=== PATIENT | male | born 1940 | race Caucasian/White ===

== ENCOUNTER 2017-08-12 13:34 | Emergency (ER) | payer OTHER ==
[2017-08-12] MEDS ORDERED: LET GEL TOPICAL 1 EA SYR TP ONE (13:43)
[2017-08-12] MEDS ORDERED: DILTIAZEM 30 MG TAB PO ONE (14:40)
--- NOTE | 2017-08-12 14:50 | EDPHY ---
H & P Stated Complaint: Fell POTLINE MONITOR - hit head - no LOC - Personal History Current Tetanus Diphtheria and Acellular Pertussis (TDAP): Yes - Medical/Surgical History Other PMH: Parkinsons/ Dimentia/HTN/Hyperlipids - Social History Smoking Status: Never smoked Time Seen by Provider: 08/12/17 13:36 HPI/ROS: CHIEF COMPLAINT: Fall HISTORY OF PRESENT ILLNESS: This is a 77-year-old male with history of Parkinson's disease, coronary disease, hypertension, atrial fibrillation, and previous stroke who presents after mechanical fall. The history was obtained from the patient and his caregiver, who was present. She notes that he lost his balance, started to spin, could not regain his balance, and fell to the ground. He struck the right side of his forehead/face and his right shoulder. He takes 1 baby aspirin daily, no other anticoagulants. He denies headache or confusion. He is not experiencing shoulder pain. REVIEW OF SYSTEMS: A ten point review of systems was performed and is negative with the exception of the items mentioned in the HPI. Past medical history: 1. Coronary artery disease status post stenting 2. Hypertension 3. Hyperlipidemia 4. Atrial fibrillation 5. CVA 6. Parkinson's disease 7. 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 He lives in a private home with a caregiver around the clock. General Appearance: Alert. Vital signs reviewed. 190/112. Head: there is a 2 cm stellate laceration over the right eyebrow laterally. Some swelling and bruising above that. There is an abrasion over the right zygoma. No zygomatic tenderness or crepitus. No skull deformity palpable. Eyes: Pupils equal and round, no conjunctival injection, no discharge. Anicteric. ENT, Mouth: Mucous membranes are moist, no oropharyngeal erythema or edema. Dentition intact. Neck: Nontender to palpation over the cervical spine in the midline. No pain with active range of motion. Respiratory: Lungs are clear to auscultation; no wheezes, rales, or rhonchi. Cardiovascular: Regular rate and rhythm; no murmur, rub, or gallop. Gastrointestinal: Abdomen is soft and nontender, no masses or organomegaly, bowel sounds normal. Skin: Warm and dry, no rashes on exposed skin, normal color. Scattered ecchymoses over both upper extremities, less so in the lower extremities. Skin tears right forearm posterolaterally. Back: Nontender to palpation over the thoracolumbar spine. No CVAT. Extremities: Bilateral lower extremity edema. Full active range of motion both arms and legs. Neurological: Alert and oriented. BRANDY. EOMI. Facial expression symmetric. Tongue midline. Moving all four extremities easily and equally. Psychiatric: Normal affect. (Wanda Fink) Constitutional: Initial Vital Signs Temperature (C) 36.6 C 08/12/17 13:48 Heart Rate 79 08/12/17 13:48 Respiratory Rate 18 08/12/17 13:48 Blood Pressure 170/85 H 08/12/17 13:48 O2 Sat (%) 96 08/12/17 13:48 O2 Delivery Mode Room Air Allergies/Adverse Reactions: nickel Allergy (Verified 08/12/17 14:11) Home Medications: Medication Instructions Recorded Ascorbic Acid [Vitamin C 500 mg 500 mg PO DAILY10 07/04/12 (OTC)] Aspirin EC [Aspirin EC 81 mg (OTC)] 81 mg PO DAILY 07/04/12 Calcium/Magnesium/Zinc 1 each PO DAILY10 07/04/12 [Ubvpwle-Wddcrmpnl-Iaqs Tab] Cholecalciferol Vit D3 [Vitamin D3 2,000 units PO DAILY10 07/04/12 2000 units (OTC)] Glucosam/Chondr/Collagn/Hyalur 1 each PO TID 07/04/12 [Glucosamine & Chondroitin Cap] Lycopene 15 mg PO DAILY10 07/04/12 Md Reconciled 07/04/12 07/04/12 Multivitamins [Tab-A-Josh] 1 each PO DAILY10 07/04/12 Niacin [Niacin 500 mg (OTC)] 500 mg PO HS 07/04/12 [place]-3 Fatty Acids [Fish Oil 1000 1,000 mg PO DAILY10 07/04/12 mg (OTC)] Adviser Sales Completed 07/04/12 07/04/12 Potassium Gluconate [Potassium] 1 tab PO DAILY10 07/04/12 Selenium [Selenium 200mcg (OTC)] 200 mcg PO DAILY10 07/04/12 Amantadine 08/12/17 Digoxin 08/12/17 Diltiazem [Cardizem Ir Q6hr] 30 mg PO BID #60 tab 05/25/18 Medical Decision Making Procedures: Procedure: Laceration repair. I was requested by Dr. Fink to perform wound closure I explained the indications, risks and benefits for both laceration repair and anesthetic administration. Verbal consent was obtained from the patient. The laceration on the right lateral eyebrow was anesthetized using 0.5% bupivicaine with epinephrine. After anesthetic administered the patient was observed for a period of time and had no apparent adverse effects. The wound was cleaned, prepped, draped in normal sterile fashion and explored to its base. No foreign body seen, no foreign bodies palpated. There were no deep structures involved. The wound was repaired with 6 simple interrupted 6 0 Prolene. The wound repair was complex. The procedure was performed by myself. Patient has been informed that scarring will occur, although efforts have been made to minimize this. ( Aurora Mcgrath) ED Course/Re-evaluation: CT scan of the head shows signs of aging, no acute injury. I reviewed the images and discussed them with Dr. Danielson. Patient was re-evaluated at 3:00 p.m.. He remains neurologically intact with no new complaints. He continues to have full active range of motion of his right arm, including shoulder. He has no complaints. Laceration repaired by Eugene Mcgrath. Dressings applied to skin tear on right forearm. This is an old skin tear that apparently reopened with this fall. I discussed the patient's hypertension with the on-call reproductive healthcare assistant. We were able to review the office notes from Dr. Ortiz. It seems that this patient has not been on antihypertensives recently. Given his multiple risk factors for stroke it was recommended that he be started on an antihypertensive. Diltiazem twice daily was the recommendation in the 1st dose was given in the emergency department. I have explained this to both the patient and his caregiver. They understand the importance of monitoring his blood pressure at home and the importance of moving about carefully particularly when rising from a chair from the bed. They know that a new blood pressure medication could cause his blood pressure to be too low and that this could make him feel faint. He is on multiple medications and I am recommending follow up with both his reproductive healthcare assistant and his primary care physician to review his medications and to be certain that his blood pressure is being adequately and appropriately controlled. (Wanda Fink) Differential Diagnosis: I considered a differential diagnosis that includes but is not limited to skull fracture, intracranial hemorrhage, cervical injury, long bone or other fracture , laceration, contusion, and abrasion. (Wanda Fink) - Data Points Medications Given: Discontinued Medications Diltiazem HCl (Cardizem Immediate Release) 30 mg PO EDNOW ONE Stop: 08/12/17 14:41 Last Admin: 08/12/17 15:39 Dose: 30 mg Departure - Departure Disposition: Home, Routine, Self-Care Condition: Good Instructions: Contusion in Adults (ED), Hypertension (ED), Facial Laceration ( ED) Additional Instructions: Take the diltiazem 30 mg twice daily. This is a medication for your blood pressure. Your blood pressure was high in the emergency department. You should check your blood pressure twice daily and write down the readings for your primary care doctor and for Dr. Ortiz. Be very careful when you stand up or get out of bed, do so slowly. You need to be followed up next week, just to be sure everything is going well. Call on Tuesday to schedule an appointment with either Dr. Ortiz or your primary care physician. You have stitches in your forehead that need to come out in 7 days. I recommend that you use your walker when out and about. Referrals: Wesley Garcia DO [Primary Care Provider] - As per Instructions Jae Ortiz MD [Medical Doctor] - As per Instructions Prescriptions: Diltiazem [Cardizem Ir Q6hr] 30 mg PO BID #60 tab
[2017-08-12 16:34] VITALS: BP 166/84
== END 2017-08-12 16:33 | disposition home or self-care (01) ==
LOC: EDUNIT#
PROC: 0HQ1XZZ Repair Face Skin, External Approach (ICD-10-PCS; principal; 2017-08-12)
DX: S01.81XA Laceration without foreign body of other part of head, initial encounter (principal); I10 Essential (primary) hypertension; I25.10 Atherosclerotic heart disease of native coronary artery without angina pectoris; Z79.82 Long term (current) use of aspirin; W18.39XA Other fall on same level, initial encounter

== ENCOUNTER 2017-12-07 21:02 | Emergency (ER) | payer OTHER ==
[2017-12-07] MEDS ORDERED: DILTIAZEM 30 MG TAB PO ONE (21:27)
--- NOTE | 2017-12-07 21:30 | EDPHY ---
H & P Stated Complaint: high BP Time Seen by Provider: 12/07/17 21:28 HPI/ROS: HPI: This is a 77-year-old male who presents with Chief Complaint: Running out of blood pressure medication Location: Heart Quality: Out of medication Duration: This evening Signs and Symptoms: no shortness of breath at rest, no shortness of breath on exertion, no cough, no chest pain, no palpitations, no lower extremity edema, no wheezing, no orthopnea, no paroxysmal nocturnal dyspnea, no fever, no injury/ trauma, no hemoptysis, no carpal pedal spasms Timing: Acute Severity: Mild Context: Patient has a history of Parkinson's disease, atrial fibrillation only on aspirin due to fall risk presents accompanied by his son who noted only having 1 pill of Cardizem left this evening. He attempted to call the primary care provider and a prescription has not been refilled. Patient is to be taking Cardizem 30 mg twice daily. He denies any history of chest pain, shortness of breath, nausea, diaphoresis, headache. Modifying Factors: None Comment: ROS: A comprehensive 10 system review of systems is otherwise negative aside from elements mentioned in the history of present illness. MEDICAL/SURGICAL/SOCIAL HISTORY: Medical history: Parkinsons/ Dimentia/HTN/Hyperlipids Surgical history: Heart valve replacement Social history: Retired. Nonsmoker. CONSTITUTIONAL: Elderly white male, son at bedside, awake and alert, no obvious distress HEENT: Atraumatic and normocephalic, PERRL, EOMI. Nares patent; no rhinorrhea; no nasal mucosal edema. Tympanic membranes clear. Oropharynx clear, no exudate and moist pink mucosa. Airway patent. No lymphadenopathy. No meningismus. Cardiovascular: Normal S1/S2, regular rate, regular rhythm, without murmur rub or gallop. PULMONARY/CHEST: Symmetrical and nontender. Clear to auscultation bilaterally. Good air movement. No accessory muscle usage. ABDOMEN: Soft, nondistended, nontender, no rebound, no guarding, no peritoneal signs, no masses or organomegaly. No CVAT. EXTREMITIES: 2/2 pulses, strength 5/5, no deformities, no clubbing, no cyanosis or edema. NEUROLOGICAL: no focal neuro deficits. GCS 15. Rolling tremor. SKIN: Warm and dry, pallor, leathery skin, no erythema. no rash. Good capillary refill. Source: Patient, Family Exam Limitations: Clinical condition - Personal History Current Tetanus/Diphtheria Vaccine: Yes Current Tetanus Diphtheria and Acellular Pertussis (TDAP): Yes - Medical/Surgical History Hx Asthma: No Hx Chronic Respiratory Disease: No Hx Diabetes: No Hx Cardiac Disease: No Hx Renal Disease: No Hx Cirrhosis: No Hx Alcoholism: No Hx HIV/AIDS: No Hx Splenectomy or Spleen Trauma: No Other PMH: Parkinsons/ Dimentia/HTN/Hyperlipids, heart valve replacement - Social History Smoking Status: Never smoked Constitutional: Initial Vital Signs Temperature (C) 36.5 C 12/07/17 21:08 Heart Rate 80 12/07/17 21:08 Respiratory Rate 16 12/07/17 21:08 Blood Pressure 180/99 H 12/07/17 21:08 O2 Sat (%) 98 12/07/17 21:08 O2 Delivery Mode Room Air Allergies/Adverse Reactions: nickel Allergy (Verified 12/07/17 21:06) Home Medications: Medication Instructions Recorded Aspirin EC [Aspirin EC 81 mg (OTC)] 81 mg PO DAILY 07/04/12 Md Reconciled 07/04/12 07/04/12 Learning Coach Completed 07/04/12 07/04/12 Amantadine 08/12/17 Digoxin 08/12/17 Diltiazem [Cardizem Ir Q6hr] 30 mg PO BID #60 tab 08/12/17 Carbidopa-Levo 10-100 mg Odt 12/07/17 Diltiazem [Cardizem Immediate 30 mg PO BID #60 tab 12/07/17 Release] Medical Decision Making - Diagnostics EKG Interpretation: 12 lead EKG: Indication: Hypertension Rhythm: Atrial fibrillation rate 84 beats per minute [place]: Normal Intervals: Normal QRS: Normal ST segments: Nonspecific changes INTERPRETATION: No acute ischemic changes The 12 lead EKG was interpreted by myself and with attending. ED Course/Re-evaluation: EKG and p.o. Med given EKG my read shows no acute ischemic changes. + rate controlled atrial fibrillation Patient is not having chest pain/shortness of breath/dizziness He was given Cardizem 30 mg immediate release in the emergency room, his home dose I did refill his medication for 30 days and advised him to follow up outpatient with his primary care provider. This patient was seen under the supervision of my secondary supervising physician. I evaluated care for this patient independently. Discussed this patient with Dr. Morales Differential Diagnosis: Differential diagnosis includes hypertension - Data Points Medications Given: Discontinued Medications Diltiazem HCl (Cardizem Immediate Release) 30 mg PO EDNOW ONE Stop: 12/07/17 21:28 Last Admin: 12/07/17 21:46 Dose: 30 mg Departure - Departure Disposition: Home, Routine, Self-Care Clinical Impression: Essential hypertension, Chronic atrial fibrillation Condition: Good Instructions: Hypertension (ED) Additional Instructions: Please take Cardizem 30 mg twice daily. Follow-up with primary care provider in the next 1-2 weeks to refill medication. Return to the ER immediately if you experience new, continued or worsened chest pain, chest pain that radiates, chest pain accompanied by exertion or associated with shortness of breath, sweating, nausea, dizziness, back pain, or any other symptoms that concern you. Referrals: Wesley Garcia DO [Primary Care Provider] - 5-7 days, call for appt. Prescriptions: Diltiazem [Cardizem Immediate Release] 30 mg PO BID #60 tab
[2017-12-07 22:07] VITALS: BP 177/106
--- NOTE | 2017-12-08 19:55 | CPEKG ---
Test Reason : OPEN Blood Pressure : / mmHG Vent. Rate : 084 BPM Atrial Rate : 127 BPM P-R Int : 064 ms QRS Dur : 098 ms QT Int : 343 ms P-R-T Axes : 000 -24 -80 degrees QTc Int : 406 ms Atrial fibrillation Inferior infarct, old Lateral leads are also involved Confirmed by Coleman Hwang ([id number]) on 12/08/2017 7:55:38 PM Referred By: Confirmed By:Coleman Hwang
== END 2017-12-07 22:07 | disposition home or self-care (01) ==
DX: I10 Essential (primary) hypertension (principal); G20 Parkinson's disease; I48.2 Chronic atrial fibrillation

== ENCOUNTER 2018-02-23 13:07 | Inpatient (IN) | payer OTHER ==
[2018-02-23] MEDS ORDERED: NS 1,000 ML IV ONE (13:58)
[2018-02-23] MEDS ORDERED: ONDANSETRON 4 MG/2 ML VIAL IVP ONE (13:58)
--- NOTE | 2018-02-23 14:00 | EDPHY ---
H & P Stated Complaint: Diarrhea and non-traumatic syncope x 3 days. Time Seen by Provider: 02/23/18 13:45 HPI/ROS: CHIEF COMPLAINT: Diarrhea, syncope HISTORY OF PRESENT ILLNESS: Patient is an 78-year-old man with history of dementia, Parkinson's, coronary artery disease and atrial fibrillation but not anticoagulated. His family brings him here complaining of diarrhea for the last 3 days and now syncopal episodes today when standing. He is hypotensive here triage. No fever. Family states his diarrhea is watery and occasionally has mucousy blood in it. He has not traveled outside of the country. No abdominal pain. No vomiting. No cramping. No sick contacts. He feels thirsty and dehydrated but does not feel like eating or drinking much. Patient and family also reported history of heart valve replacement although he does not have a scar on his chest does not remember which valve and I cannot find any record of it in the medical records. Severity: Moderate Modifying factors: None REVIEW OF SYSTEMS: Constitutional: denies: chills, fever, recent illness, recent injury EENTM: denies: blurred vision, double vision, nose congestion Respiratory: denies: cough, shortness of breath Cardiac: denies: chest pain, irregular heart rate, lightheadedness, palpitations Gastrointestinal/Abdominal: denies: abdominal pain, diarrhea, nausea, vomiting, blood streaked stools Genitourinary: See HPI Musculoskeletal: denies: joint pain, muscle pain Skin: denies: lesions, rash, jaundice, bruising Neurological: denies: headache, numbness, paresthesia, tingling, dizziness, weakness Hematologic/Lymphatic: denies: blood clots, easy bleeding, easy bruising Immunologic/allergic: denies: HIV/AIDS, transplant 10 systems reviewed and negative except as noted EXAM: GENERAL: Thin, sunken eyes, moderate distress HEAD: Atraumatic, normocephalic. EYES: Pupils equal round and reactive to light, extraocular movements intact, sclera anicteric, conjunctiva are normal. ENT: TMs normal, nares patent, oropharynx clear without exudates. Very dry mucous membranes. NECK: Normal range of motion, supple without lymphadenopathy or JVD. LUNGS: Breath sounds clear to auscultation bilaterally and equal. No wheezes rales or rhonchi. HEART: Regular rate and rhythm without murmurs, rubs or gallops. ABDOMEN: Soft, nontender, normoactive bowel sounds. No guarding, no rebound. No masses appreciated. BACK: No CVA tenderness, no spinal tenderness, step-offs or deformities EXTREMITIES: Normal range of motion, no pitting or edema. No clubbing or cyanosis. NEUROLOGICAL: Cranial nerves II through XII grossly intact. Normal speech, normal gait. 5/5 strength, normal movement in all extremities, normal sensation , normal reflexes PSYCH: Normal mood, normal affect. SKIN: Dry, Warm, dry, normal turgor, no visible rashes or lesions. Source: Patient Exam Limitations: No limitations - Personal History Current Tetanus/Diphtheria Vaccine: Yes - Medical/Surgical History Hx Asthma: No Hx Chronic Respiratory Disease: No Hx Diabetes: No Hx Cardiac Disease: No Hx Renal Disease: No Hx Cirrhosis: No Hx Alcoholism: No Hx HIV/AIDS: No Hx Splenectomy or Spleen Trauma: No Other PMH: Parkinsons/ Dimentia/HTN/Hyperlipids, atrial fibrillation,?heart valve replacement - Family History Significant Family History: No pertinent family hx - Social History Smoking Status: Never smoked Alcohol Use: Sober Drug Use: None Constitutional: Initial Vital Signs Heart Rate 88 02/23/18 13:10 Respiratory Rate 16 02/23/18 13:10 Blood Pressure 87/60 L 02/23/18 13:10 O2 Sat (%) 94 02/23/18 13:10 O2 Delivery Mode Room Air Allergies/Adverse Reactions: nickel Allergy (Verified 02/23/18 13:09) Home Medications: Medication Instructions Recorded Amantadine HCl [Amantadine] 100 mg PO BID 02/23/18 Aspirin EC [Aspirin EC 81 mg (*)] 81 mg PO HS 02/23/18 Carbidopa/Levodopa 25/100Mg 1 tab PO AD 02/23/18 [Sinemet 25/100 MG (*)] Digoxin [Digitek] 125 mcg PO DAILY@14 02/23/18 Diltiazem HCl 15 mg PO BID 02/23/18 Multivitamins [Multivitamin (*)] 1 each PO DAILY 02/23/18 Medical Decision Making - Diagnostics EKG Interpretation: An EKG obtained and was read and documented in trace view. Please see trace view for full reading and report. Atrial fibrillation, no acute ischemic changes ED Course/Re-evaluation: The patient is feeling slightly better. He has had 1 L of fluids. Blood pressure is improving. CT pending. Stool sample pending Discussed the case with Dr. Barragan who will admit to the medical service. Differential Diagnosis: Partial list of the Differential diagnosis considered include but were not limited to; dehydration, diarrhea, C difficile, gastroenteritis and although unlikely based on the history and physical exam, I also considered ischemia, obstruction, volvulus. - Data Points Laboratory Results: Laboratory Results 02/23/18 13:55 02/23/18 13:55 Medications Given: Amantadine HCl (Symmetrel) 100 mg PO BID ALIS Stop: 08/22/18 20:59 Last Admin: 02/24/18 08:10 Dose: 100 mg Aspirin Buffered (Aspirin Ec) 81 mg PO HS ALIS Stop: 08/22/18 20:59 Last Admin: 02/23/18 21:23 Dose: 81 mg Digoxin (Lanoxin) 125 mcg PO DAILY@14 ALIS Stop: 08/23/18 13:59 Last Admin: 02/24/18 15:41 Dose: 125 mcg Diltiazem HCl (Cardizem Immediate Release) 15 mg PO BID ALIS Stop: 08/22/18 20:59 Last Admin: 02/24/18 08:07 Dose: 15 mg Sodium Chloride (Ns) 1,000 mls @ 100 mls/hr IV CONT ALIS Stop: 08/22/18 17:29 Last Admin: 02/24/18 04:33 Dose: 1,000 mls Multivitamins (Tab-A-Josh) 1 each PO DAILY ALIS Stop: 08/23/18 08:59 Last Admin: 02/24/18 08:10 Dose: 1 each Discontinued Medications Sodium Chloride (Ns) 1,000 mls @ 0 mls/hr IV EDNOW ONE; Wide Open PRN Reason: Protocol Stop: 02/23/18 13:59 Last Admin: 02/23/18 14:20 Dose: 1,000 mls Ondansetron HCl (Zofran) 4 mg IVP EDNOW ONE Stop: 02/23/18 13:59 Last Admin: 02/23/18 14:20 Dose: 4 mg Departure - Departure Disposition: [facility] In[facility] Acute Clinical Impression: Pre-syncope, Dehydration Diarrhea Qualifiers: Diarrhea type: unspecified type Qualified Code(s): R19.7 - Diarrhea, unspecified Condition: Fair
[2018-02-23 14:31] LABS: PLATELET COUNT 230 10^3/uL (150-400)
--- NOTE | 2018-02-23 14:32 | CPEKG ---
Test Reason : OPEN Blood Pressure : / mmHG Vent. Rate : 071 BPM Atrial Rate : 106 BPM P-R Int : 058 ms QRS Dur : 102 ms QT Int : 364 ms P-R-T Axes : 000 -28 -11 degrees QTc Int : 396 ms Atrial fibrillation Inferior infarct, old Confirmed by Fabiano Hill ([id number]) on 02/23/2018 2:32:26 PM Referred By: Confirmed By:Fabiano Hill
[2018-02-23] MEDS ORDERED: IOPAMIDOL (ISOVUE-300) 100 ML BTL ONE (15:02)
--- NOTE | 2018-02-23 16:41 | PDGENHP ---
History and Physical - Chief Complaint syncope - History of Present Illness 78 yo M with PMH of Parkinson's disease with associated dementia presenting from home following diarrhea all day yesterday followed by 2 syncopal episodes today. Patient is accompanied by his son, daughter in law and caregiver who provide much of the history as patient has evident memory issues. This am patient apparently fainted once for several seconds but then had a longer syncopal event, lasting as long as 20 minutes per estimate by patient's son. Patient states yesterday he took an immodium and after that the diarrhea resolved and he has not had any today. He denies any injuries related to the syncopal events. Family notes that he has had issues with syncope in the past, this would happen once or twice every few months, but recently has been happening more frequently and seeming more severe. They note that his bp has been erratic and that his doctor has been trying to adjust the bp medications in order to avoid these syncopal events. They were told that as long as his systolic remains below 200 not to worry about the bp essentially, they note it is often close to the 200 range. He has not had chest pain, seizure like activities or recent illness prior to the diarrhea yesterday. History Information - Allergies/Home Medication List Allergies/Adverse Reactions: nickel Allergy (Verified 02/23/18 13:09) Home Medications: Amantadine HCl [Amantadine] 100 mg PO BID 02/23/18 [Last Taken 02/23/18] Aspirin EC [Aspirin EC 81 mg (*)] 81 mg PO HS 02/23/18 [Last Taken 02/22/18] Carbidopa/Levodopa 25/100Mg [Sinemet 25/100 MG (*)] 1 tab PO AD 02/23/18 [Last Taken 02/23/18] Digoxin [Digitek] 125 mcg PO DAILY@14 02/23/18 [Last Taken 02/22/18] Diltiazem HCl 15 mg PO BID 02/23/18 [Last Taken 02/23/18] Multivitamins [Multivitamin (*)] 1 each PO DAILY 02/23/18 [Last Taken 02/23/18] I have personally reviewed and updated: family history, medical history, social history, surgical history - Past Medical History atrial fibrillation (persistent), coronary artery disease, dementia Additional medical history: Parkinson's disease. recurrent falls. epistaxix. microvascular infarcts - Surgical History Reports: coronary stent - Family History Positive for: non-pertinent - Social History Smoking Status: Never smoked Alcohol Use: Sober Drug Use: None Additional social history: lives with son/daughter in law and caregiver Review of Systems Review of Systems: ROS: 10pt was reviewed & negative except for what was stated in HPI & below Physical Exam Physical Exam: Temp Pulse Resp BP Pulse Ox 89 18 130/95 H 94 02/23/18 16:19 02/23/18 16:19 02/23/18 16:19 02/23/18 16:19 Constitutional: no apparent distress, chronically ill appearing Eyes: PERRL, anicteric sclera Ears, Nose, Mouth, Throat: hearing normal, poor dentition, dry mucous membranes Cardiovascular: no murmur, rub, or gallop, irregularly irregular, No edema Respiratory: no respiratory distress, no rales or rhonchi, clear to auscultation Gastrointestinal: normoactive bowel sounds, soft, non-tender abdomen Genitourinary: no bladder tenderness Skin: warm, normal color, other (scattered skin lesions c/w actinic keratosis) Musculoskeletal: no muscle tenderness, No muscular tenderness Neurologic: AAOx3, CN II-XII Intact Psychiatric: flat affect, poor memory Lab Data & Imaging Review 02/23/18 13:55 02/23/18 13:55 WBC 12.44 10^3/uL (3.80-9.50) H 02/23/18 13:55 RBC 5.24 10^6/uL (4.40-6.38) 02/23/18 13:55 Hgb 15.8 g/dL (13.7-17.5) 02/23/18 13:55 Hct 49.4 % (40.0-51.0) 02/23/18 13:55 MCV 94.3 fL (81.5-99.8) 02/23/18 13:55 MCH 30.2 pg (27.9-34.1) 02/23/18 13:55 MCHC 32.0 g/dL (32.4-36.7) L 02/23/18 13:55 RDW 13.9 % (11.5-15.2) 02/23/18 13:55 Plt Count 230 10^3/uL (150-400) 02/23/18 13:55 MPV 11.0 fL (8.7-11.7) 02/23/18 13:55 Neut % (Auto) 84.6 % (39.3-74.2) H 02/23/18 13:55 Lymph % (Auto) 6.4 % (15.0-45.0) L 02/23/18 13:55 [place] % (Auto) 7.4 % (4.5-13.0) 02/23/18 13:55 Eos % (Auto) 0.7 % (0.6-7.6) 02/23/18 13:55 Baso % (Auto) 0.5 % (0.3-1.7) 02/23/18 13:55 Nucleat RBC Rel Count 0.0 % (0.0-0.2) 02/23/18 13:55 Absolute Neuts (auto) 10.52 10^3/uL (1.70-6.50) H 02/23/18 13:55 Absolute Lymphs (auto) 0.80 10^3/uL (1.00-3.00) L 02/23/18 13:55 Absolute Monos (auto) 0.92 10^3/uL (0.30-0.80) H 02/23/18 13:55 Absolute Eos (auto) 0.09 10^3/uL (0.03-0.40) 02/23/18 13:55 Absolute Basos (auto) 0.06 10^3/uL (0.02-0.10) 02/23/18 13:55 Absolute Nucleated RBC 0.00 10^3/uL (0-0.01) 02/23/18 13:55 Immature Gran % 0.4 % (0.0-1.1) 02/23/18 13:55 Immature Gran # 0.05 10^3/uL (0.00-0.10) 02/23/18 13:55 Sodium 138 mEq/L (135-145) 02/23/18 13:55 Potassium 4.7 mEq/L (3.5-5.2) 02/23/18 13:55 Chloride 105 mEq/L (97-110) 02/23/18 13:55 Carbon Dioxide 22 mEq/l (22-31) 02/23/18 13:55 Anion Gap 11 mEq/L (6-14) 02/23/18 13:55 BUN 34 mg/dL (7-23) H 02/23/18 13:55 Creatinine 1.0 mg/dL (0.7-1.3) 02/23/18 13:55 Estimated GFR > 60 02/23/18 13:55 Glucose 94 mg/dL (70-100) 02/23/18 13:55 Calcium 9.7 mg/dL (8.5-10.4) 02/23/18 13:55 Total Bilirubin 1.0 mg/dL (0.1-1.4) 02/23/18 13:55 Conjugated Bilirubin 0.3 mg/dL (0.0-0.5) 02/23/18 13:55 Unconjugated Bilirubin 0.7 mg/dL (0.0-1.1) 02/23/18 13:55 AST 23 IU/L (17-59) 02/23/18 13:55 ALT 12 IU/L (21-72) L 02/23/18 13:55 Alkaline Phosphatase 105 IU/L (38-126) 02/23/18 13:55 Total Protein 7.7 g/dL (6.3-8.2) 02/23/18 13:55 Albumin 4.3 g/dL (3.5-5.0) 02/23/18 13:55 Lipase 33 IU/L (23-300) 02/23/18 13:55 Visualized and Interpreted EKG results: Yes EKG additional interpertation: a fib Assessment & Plan Assessment: Diarrhea (Acute) Pre-syncope (Acute) Dehydration (Acute) 78 yo M with PMH of persistent a fib, parkinson's disease and frequent falls presenting s/p bout of diarrhea with syncope x 2 # syncope: in the setting of appearing volume down and 1 day of diarrhea followed by today with minimal po intake. Suspect given underlying PD he has chronic autonomic instability and is very sensitive to volume changes related to volume depletion. Will monitor frequent bp overnight. On arrival BP was 87/ 60 and now hypertensive. Will monitor on tele, check echo in am given increasing events and check serial trops. May need to downtitrate BP meds further though currently only on low dose dilt as next # persistent a fib: for which he is chronically on dilt (dose recently lowered given recurrent syncope as above) and digoxin. Will check dig level, continue current meds for now monitoring bp closely. Will get echo in am # PD: with associated autonomic instability as above, continue op meds, pt/ot to evaluate # CAD: without c/o chest pain or acute ischemic changes on ecg, monitoring on tele, serial trops, echo # diarrhea: has resolved, likely viral and abd CT with colitis appreciated on personal review of imaging, GI pathogen panel ordered # teresita: pre renal, baseline creatinine closer to 0.6, currently at 1.0 with elevated BUN, IVF overnight # leukocytosis: presumably related to colitis, trending # observation status # DNR--son present at bedside MDPOA Patient new to my care. Old records reviewed and summarized as above. Care plan reviewed with ER doctor and further hx obtained from family at bedside.
[2018-02-23] MEDS ORDERED: oxyCODONE IR 5 MG TAB PO PRN (17:19)
[2018-02-23] MEDS ORDERED: ACETAMINOPHEN 325 MG TAB PO PRN (17:19)
[2018-02-23] MEDS ORDERED: ONDANSETRON DISINTEGRATING 4 MG TAB PO PRN (17:19)
[2018-02-23] MEDS ORDERED: HYDROCODONE/APAP 5/325 TAB PO PRN (17:19)
[2018-02-23] MEDS ORDERED: ONDANSETRON 4 MG/2 ML VIAL IVP PRN (17:19)
[2018-02-23] MEDS ORDERED: CARBIDOPA/LEVODOPA 25 MG/100 MG TAB PO SCH (17:30)
[2018-02-23] MEDS: NS 1,000 ML IV SCH (17:58)
[2018-02-23] MEDS: AMANTADINE HCL 100 MG CAP PO SCH (21:22)
[2018-02-23] MEDS: ASPIRIN EC 81 MG TAB PO SCH (21:23)
[2018-02-23] MEDS: DILTIAZEM 30 MG TAB PO SCH (21:23)
[2018-02-24] MEDS: NS 1,000 ML IV SCH (04:33)
[2018-02-24 05:50] LABS: PLATELET COUNT 220 10^3/uL (150-400)
[2018-02-24] MEDS: DILTIAZEM 30 MG TAB PO SCH ×2 (08:07→19:29)
[2018-02-24] MEDS: MULTIVITAMINS 1 EACH TAB PO SCH (08:10)
[2018-02-24] MEDS: AMANTADINE HCL 100 MG CAP PO SCH ×2 (08:10→19:29)
--- NOTE | 2018-02-24 08:16 | HOSPPROG ---
Hospitalist Progress Note Assessment/Plan: #Syncope: suspect dehydration in setting of diarrhea. BP normalized after IVFs #Permanent a fib: Dilt, dig level low. Reviewed Dr. Elkins's last clinic note and plan was more palliative measures and to minimize changes in medications #Parkinson's: being wean off Carbidopa by his Neurologist #Labile BP: SBP 190-200s at home. Normotensive here. Will monitor closely #LILIA: stable after fluids #CAD: trop, EKG negative #Diarrhea: viral. GI panel negative #Leukocytosis: improved. Negative GI, resp PCR and UA #Diet: regular #DVT ppx: SCDs Inpatient admission for telemetry, IVFs, PT Son at bedside, questions answered Subjective: no chest pain or SOB. No abd pain. 2 epidsodes of diarrhea yesterday Objective: Vital Signs Temp Pulse Resp BP Pulse Ox 36.8 C 102 H 16 125/76 H 92 02/24/18 05:17 02/24/18 08:07 02/24/18 05:17 02/24/18 08:07 02/24/18 05:17 Microbiology 02/23/18 21:07 Gastrointestinal Tract Panel (PCR) - Final Stool No Organism Detected By Pcr Laboratory Results 02/24/18 04:51 02/24/18 04:51 02/23/18 02/24/18 02/25/18 05:59 05:59 05:59 Intake Total 1000 Balance 1000 - Time Spent With Patient Time Spent with Patient: greater than 35 minutes Time Spent with Patient: Greater than 35 minutes spent on this patients care, greater than 50% of time spent counseling, educating, and coordinating care regarding the above mentioned plan. - Physical Exam Constitutional: chronically ill appearing Eyes: PERRL Ears, Nose, Mouth, Throat: moist mucous membranes Cardiovascular: regular rate and rhythym Respiratory: no respiratory distress Gastrointestinal: normoactive bowel sounds, soft, non-tender abdomen Skin: warm Musculoskeletal: generalized weakness Neurologic: other (masked facies. No cogwheeling) ICD10 Worksheet Patient Problems: Problems Problem Status Onset Diarrhea Acute Pre-syncope Acute Dehydration Acute
--- NOTE | 2018-02-24 14:15 | ASMTCMCOM ---
CM Note CM Note Notes: CM reviewed pt's chart for d/c planning. Pt brought to ED for diarrhea and 2 syncopal episodes, one lasting several seconds and one lasting 20 minutes. He has a medical hx significant for dementia, Parkinsons, CAD, AFIB and HTN. OT/PT ordered. PT recommended in-home PT. No OT recommended. Family called; they requested [facility] as they had them before and were satisfied. Call made to [facility]. CM to follow. D/C Plan: Home with [facility] PT. Date Signed: 02/24/2018 02:13 PM Electronically Signed By:Demetrice Astudillo
[2018-02-24] MEDS: DIGOXIN 125 MCG TAB PO SCH (15:41)
--- NOTE | 2018-02-24 18:12 | ECHO ---
[email or web address] [address] [address] Main: [phone] Fax: Transthoracic Echocardiogram Name: THOMAS MOORE MR#: [id number] Study Date: 02/24/2018 Study Time: 09:05 AM Date of : 1940 Age: 78 year(s) Height: 167.6 cm (66 in.) Weight: 66.23 kg (146 lb.) BSA: 1.75 m2 Gender: Male Examination: Echo Indication: Cardiac: syncope Image Quality: Adequate Contrast: Requested by: Yue Mcdaniel BP: 125 mmHg/76 mmHg Heart Rate: Rhythm: Indication: Cardiac: syncope Procedure Staff Brass Cleaner: Veronica Storey [facility] Reading Physician: Phillip Arceo MD Requesting Provider: Conclusions: Normal size left ventricle. Mild concentric LV hypertrophy. Normal global systolic LV function. The ejection fraction is visually estimated to be 55 %. No regional wall motion abnormality. Normal RV function. The left atrium is severely dilated. The right atrium is moderately to severely dilated. The mitral valve is normal in appearance and function. The mitral regurgitation has multiple jets and appears moderate. The aortic valve is tri-leaflet. Aortic sclerosis is present. Mild to moderate aortic valve regurgitation. The tricuspid valve is normal in appearance and function. Moderate tricuspid regurgitation is present. The pulmonary artery pressure is mild to moderately increased. Right ventricular systolic pressure measures 49mmHg. Mild pulmonic valve regurgitation is noted. Normal size ascending aorta measuring 3.1 cm. The IVC is dilated. No pericardial effusion. Measurements: Chambers Valvular Assessment AV/MV Valvular Assessment TV/PV Normal Normal Normal Name Value Range Name Value Range Name Value Range Ao Jia (2D): 3.3 cm (1.4 cm-2.6 AV Vmax: 1.32 m/s (1 m/s-1.7 TR Vmax: 3.32 mm/s ( - ) cm) m/s) TR PGmax: 44 mmHg ( - ) AV maxP mmHg ( - ) syst. PAP: 49 mmHg ( - ) Patient: THOMAS MOORE Study Date: 02/24/2018 Page 1 of 3 09:05 AM IVSd (2D): 1.2 cm (0.6 cm-1.1 AV meanP mmHg ( - ) PV Vmax: 0.71 m/s (0.6 m/s-0.9 cm) SALMA (VTI): 2.0 cm ( - ) m/s) LVDd (2D): 4.8 cm (4.2 cm-5.9 MV E Vmax: 0.86 m/s ( - ) PV PGmax: 2 mmHg ( - ) cm) MV PHT: 0.050 s ( - ) LVDs (2D): 3.3 cm (2.1 cm-4 MVA (PHT): 4.4 s ( - ) cm) LVPWd (2D): 1.1 cm (0.6 cm-1 cm) LVOTd 2.3 cm 2.3 cm mm LVEF (MOD4): 61 % (>=55 %) Visual EF: 55 % RVDd(2D): 4.0 cm (1.9 cm-3.8 cmmm) Continued Measurements: Chambers Valvular Assessment AV/MV Valvular Assessment TV/PV Name Value Name Value Name Value LADs: 4.8 cm MV DecTime: 165 m/s CVP (est.): 5 mmHg LADs Lon.8 cm MR ERO: 0.310 cm2 LA Area: 33.5 cm2 MR PISA radius: 8 mm LA Volume: 110 ml MR Reg. Volume: 46 ml LA Volume Index: 62.9 ml/m2 RA Area: 26.6 cm2 Additional Vessels Name Value Ao Ascendin.1 cm Inferior Vena Cava: 2.6 cm Findings: Left Ventricle: Normal size left ventricle. Mild concentric LV hypertrophy. Normal global systolic LV function. The ejection fraction is visually estimated to be 55 %. No regional wall motion abnormality. Unable to assess diastolic dysfunction. Right Ventricle: Normal size right ventricle. Normal RV function. Left Atrium: The left atrium is severely dilated. Right Atrium: The right atrium is moderately to severely dilated. Mitral Valve: The mitral valve is normal in appearance and function. No mitral stenosis is present. The mitral regurgitation has multiple jets and appears moderate. Aortic Valve: The aortic valve is tri-leaflet. Aortic sclerosis is present. Mild to moderate aortic valve regurgitation. No aortic valve stenosis is present. Tricuspid Valve: The tricuspid valve is normal in appearance and function. Moderate tricuspid regurgitation is present. The pulmonary artery pressure is mild to moderately increased. Right ventricular systolic pressure measures 49mmHg. Pulmonic Valve: The pulmonic valve is normal in appearance and function. Mild pulmonic valve regurgitation is noted. Aorta: The aorta is normal. Normal size aortic root measuring 3.3 cm. Normal size ascending aorta measuring 3.1 cm. IVC: The IVC is dilated. Pericardium: Patient: THOMAS MOORE Study Date: 02/24/2018 Page 2 of 3 09:05 AM No pericardial effusion. No pleural effusion. (No Signature Object) Patient: THOMAS MOORE Study Date: 02/24/2018 Page 3 of 3 09:05 AM [id number]
[2018-02-24] MEDS: ASPIRIN EC 81 MG TAB PO SCH (19:29)
[2018-02-25] MEDS: LOPERAMIDE HCL 2 MG CAP PO PRN ×3 (00:04→20:02)
[2018-02-25] MEDS: NS 1,000 ML IV SCH ×2 (05:53→15:40)
[2018-02-25] MEDS: DILTIAZEM 30 MG TAB PO SCH ×2 (09:28→20:02)
[2018-02-25] MEDS: MULTIVITAMINS 1 EACH TAB PO SCH (09:29)
[2018-02-25] MEDS: AMANTADINE HCL 100 MG CAP PO SCH ×2 (09:29→20:01)
--- NOTE | 2018-02-25 12:57 | CPEKG ---
Test Reason : OPEN Blood Pressure : / mmHG Vent. Rate : 089 BPM Atrial Rate : 000 BPM P-R Int : 200 ms QRS Dur : 091 ms QT Int : 341 ms P-R-T Axes : 000 -21 -45 degrees QTc Int : 415 ms Atrial fibrillation Borderline left axis deviation Low voltage, extremity and precordial leads Confirmed by Jae Ortiz ([id number]) on 02/25/2018 12:56:55 PM Referred By: Confirmed By:Jae Ortiz
[2018-02-25] MEDS: PANTOPRAZOLE SODIUM 40 MG VIAL IVP SCH ×2 (13:56→20:01)
[2018-02-25] MEDS: DIGOXIN 125 MCG TAB PO SCH (13:56)
--- NOTE | 2018-02-25 15:57 | PDMN ---
Medical Necessity [place] [facility] [place]: 78 yo presents w/ diarrhea followed by two syncopal episodes. Syncope-suspect dehydration. Initially OBS but pt experiencing labile BP - suspect his Parkinson's causes chronic autonomic instability and is sensitive to volume changes r/t volume depletion. HR labile and in persistent afib, oxygen started 02/25 for low sats, pt cont on IVF, PT/OT evals ordered. Pt to cont on TELE monitoring. WBC cont to be elevated. Change to IP status for ongoing monitoring and tx of the above. Hx Parkinsons, dementia, recurrent falls, CAD, afib, microvascular infarcts, and epistaxis. Change to IP status 02/25/18@ 1420 per MD order, note IP order delayed, MD wanted pt switched to IP 02/24.
--- NOTE | 2018-02-25 16:32 | HOSPPROG ---
Hospitalist Progress Note Assessment/Plan: #Hematochezia: repeat H/H stable. Lactate and no abd pain argue against ischemia. GI PCR negative. Could be viral -repeat H/H -spoke with Dr. Patel. Had scope 2 years with polyps. Hold off on scope and treat supportively unless clinically changes #Syncope: suspect dehydration in setting of diarrhea. BP normalized after IVFs #Permanent a fib: Dilt, dig level low. Reviewed Dr. Elkins's last clinic note and plan was more palliative measures and to minimize changes in medications #Parkinson's: being wean off Carbidopa by his Neurologist #Labile BP: SBP 190-200s at home. Normotensive here. Will monitor closely #LILIA: stable after fluids #CAD: trop, EKG negative #Diarrhea: viral. GI panel negative #Leukocytosis: improved. Negative GI, resp PCR and UA #Diet: regular #DVT ppx: SCDs Inpatient admission for telemetry, IVFs, PT Son at bedside, questions answered Subjective: multiple maroon stools overnight per family and RN. No abd pain Objective: Vital Signs Temp Pulse Resp BP Pulse Ox 36.6 C 82 18 150/92 H 89 L 02/25/18 15:37 02/25/18 15:37 02/25/18 03:25 02/25/18 15:37 02/25/18 11:25 - Time Spent With Patient Time Spent with Patient: greater than 35 minutes Time Spent with Patient: Greater than 35 minutes spent on this patients care, greater than 50% of time spent counseling, educating, and coordinating care regarding the above mentioned plan. - Physical Exam Constitutional: no apparent distress Eyes: PERRL Ears, Nose, Mouth, Throat: moist mucous membranes, hearing normal Cardiovascular: irregularly irregular Respiratory: no respiratory distress Gastrointestinal: normoactive bowel sounds, soft, non-tender abdomen Musculoskeletal: generalized weakness Neurologic: CN II-XII Intact Psychiatric: flat affect ICD10 Worksheet Patient Problems: Problems Problem Status Onset Dehydration Acute Diarrhea Acute Pre-syncope Acute
[2018-02-26] MEDS: LOPERAMIDE HCL 2 MG CAP PO PRN (02:19)
[2018-02-26] MEDS: NS 1,000 ML IV SCH (03:14)
[2018-02-26] MEDS: DILTIAZEM 30 MG TAB PO SCH ×2 (08:29→20:15)
[2018-02-26] MEDS: MULTIVITAMINS 1 EACH TAB PO SCH (08:29)
[2018-02-26] MEDS: PANTOPRAZOLE SODIUM 40 MG VIAL IVP SCH ×2 (08:29→20:14)
[2018-02-26] MEDS: AMANTADINE HCL 100 MG CAP PO SCH ×2 (08:29→20:14)
--- NOTE | 2018-02-26 09:17 | GCON ---
DATE OF CONSULTATION: 02/25/2018 REFERRING PHYSICIAN: Veronica Raymond MD REASON FOR CONSULTATION: Blood in stool/diarrhea. CHIEF COMPLAINT: Diarrhea. HISTORY OF PRESENT ILLNESS: The patient is an 78-year-old male with history of colonic polyps, Parkinson disease, dementia, who presents to [facility] yesterday with complaints of diarrhea as well as syncope. Carlos Alberto has had complaints of diarrhea for the last 3 days where he goes approximately 6 times each day. He denies any blood in his stool. He had several syncopal episodes prior to admission, which is the reason he was brought to [facility]. He states he may have had some minor abdominal pain. He denies any exacerbating or alleviating factors to his symptoms. In the hospital, there may have been bloody stools. He denies this. Due to his complaints, a CT scan of the abdomen was performed. He was noted to have diffuse colitis most severe in the rectosigmoid area. I am being asked by Dr. Raymond to see Carlos Alberto in consultation regarding his diarrhea/colitis. PAST MEDICAL HISTORY: 1. Atrial fibrillation. 2. Coronary artery disease. 3. Dementia. 4. Parkinson disease. PAST SURGICAL HISTORY: Partial colonic resection due to a large polyp. ALLERGIES: Nickel. HOME MEDICATIONS: Amantadine, aspirin, carbidopa/levodopa, digoxin. SOCIAL HISTORY: No significant alcohol or tobacco use. FAMILY HISTORY: No history of colon cancer. REVIEW OF SYSTEMS: A 12-point comprehensive review of systems was asked. Pertinent positives and negatives per HPI. PHYSICAL EXAMINATION: VITAL SIGNS: Blood pressure 150/92, pulse 82, temperature 36.6, O2 saturation 89% on 1 L. GENERAL: Awake, alert, and oriented. HEENT: Anicteric. Moist mucosa. NECK: No JVD. CARDIOVASCULAR: Regular rate and rhythm. Positive S1, S2. No murmurs, rubs, or gallops appreciated. LUNGS: Clear to auscultation bilaterally without wheezes, rales, or rhonchi. ABDOMEN: Soft, nontender, nondistended. Positive bowel sounds. No guarding or rebound. EXTREMITIES: No clubbing, cyanosis or edema. NEUROLOGIC: 2 through 12 grossly intact. PSYCHIATRIC: Flat affect. LAB DATA: Blood work hemoglobin 13. WBCs 10.57. Sodium 140. BUN 30. Creatinine 1.0. AST 23. ALT 12. ASSESSMENT AND PLAN: 1. Diarrhea-with possible blood in the stool. Colitis on CT. He has had a prior colonoscopy 2 years ago by my partner, Dr. Mcghee. Etiology? Infectious versus ischemic versus other? At this time, recommend to check stool studies. Would also recommend to consider colonoscopy if symptoms do not resolve and stool studies are negative. The risks, benefits, and alternatives were discussed with him in great detail. 2. History of colonic polyps. 3. Parkinson disease. 4. Dementia. 5. Hypertension. 6. Atrial fibrillation. Thank you very much for this consultation. /[id number]/MODL MTDD
--- NOTE | 2018-02-26 10:48 | HOSPPROG ---
Hospitalist Progress Note Assessment/Plan: #Syncope: this morning after BM. Suspect vasovagal. BP stable now. Check orthostatics -autonomic dysfunction with Parkinson's may be contributing. Could consider Midodrine, but would be cautious with reported elevated BP at home #Hematochezia: resolved. H/H stable. Lactate and no abd pain argue against ischemia. GI PCR negative. Could be viral -spoke with Dr. Patel. Had scope 2 years with polyps. Hold off on scope and treat supportively unless clinically changes #Permanent a fib: Dilt, dig level low. Reviewed Dr. Elkins's last clinic note and plan was more palliative measures and to minimize changes in medications #Parkinson's: being wean off Carbidopa by his Neurologist #Labile BP: SBP 190-200s at home. Normotensive here. Will monitor closely #LILIA: stable after fluids #CAD: trop, EKG negative #Diarrhea: viral. GI panel negative #Leukocytosis: improved. Negative GI, resp PCR and UA #Goals: had lengthy conversation with patient, son, [id number]. As discussed previously with his [employer], he is more interested in palliative measures.Goal is to be at home. Would not invasive procedures such as cardiac cath -Palliative care consult in morning -DNR #Diet: regular #DVT ppx: SCDs Inpatient admission for telemetry, IVFs, PT Additional direct time spent on goal planning, Palliative care. 30 min bedside with pt/family (11:30-12) Subjective: syncopal episode this morning after using bathroom. No prodromal chest pain, SOB Objective: Vital Signs Temp Pulse Resp BP Pulse Ox 37.1 C 99 20 135/99 H 100 02/26/18 07:59 02/26/18 07:59 02/26/18 07:59 02/26/18 07:59 02/26/18 07:59 Laboratory Results 02/26/18 04:25 02/25/18 02/26/18 02/27/18 05:59 05:59 05:59 Intake Total 1200 Balance 1200 - Time Spent With Patient Time Spent with Patient: greater than 35 minutes Time Spent with Patient: Greater than 35 minutes spent on this patients care, greater than 50% of time spent counseling, educating, and coordinating care regarding the above mentioned plan. - Physical Exam Constitutional: chronically ill appearing Eyes: PERRL Ears, Nose, Mouth, Throat: moist mucous membranes Cardiovascular: irregularly irregular Respiratory: no respiratory distress Gastrointestinal: normoactive bowel sounds Genitourinary: no bladder fullness Musculoskeletal: generalized weakness Neurologic: AAOx3, CN II-XII Intact Psychiatric: not encephalopathic ICD10 Worksheet Patient Problems: Problems Problem Status Onset Dehydration Acute Diarrhea Acute Pre-syncope Acute
[2018-02-26] MEDS: DIGOXIN 125 MCG TAB PO SCH (14:07)
--- NOTE | 2018-02-26 17:40 | SOAPPROG ---
SOAP Progress Note Assessment/Plan: Assessment: Plan: 02/26/18 17:39 A/P 1. Diarrhea- with colitis on CT. Possible blood. Etiology? Infectious versus ischemic versus other? Not improved today. I discussed proceeding with endoscopic evaluation but they do not want any invasive testing at this time. Will follow Subjective: cc: Follow up diarrhea No improvement. Still having diarrhea. Objective: Vital Signs Temp Pulse Resp BP Pulse Ox 36.7 C 100 12 157/100 H 91 L 02/26/18 15:49 02/26/18 15:49 02/26/18 15:49 02/26/18 15:49 02/26/18 12:00 Laboratory Results 02/26/18 04:25 02/26/18 11:57 02/25/18 02/26/18 02/27/18 05:59 05:59 05:59 Intake Total 1200 Balance 1200 Physical Exam - Physical Exam General Appearance: alert, no apparent distress EENT: No scleral icterus (R), No scleral icterus (L) Respiratory: chest non-tender, normal breath sounds Abdomen: normal bowel sounds, non-tender, soft, No guarding, No rebound Skin: normal color, warm/dry Neuro/Psych: normal mood/affect, oriented x 3, No abnormal 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
[2018-02-27 08:14] VITALS: BP 124/79
[2018-02-27] MEDS: MULTIVITAMINS 1 EACH TAB PO SCH (08:22)
[2018-02-27] MEDS: PANTOPRAZOLE SODIUM 40 MG VIAL IVP SCH (08:22)
[2018-02-27] MEDS: DILTIAZEM 30 MG TAB PO SCH (08:22)
[2018-02-27] MEDS: AMANTADINE HCL 100 MG CAP PO SCH (08:23)
[2018-02-27 10:41] LABS: PLATELET COUNT 205 10^3/uL (150-400)
--- NOTE | 2018-02-27 14:19 | PDIAF ---
- Diagnosis Diagnosis: syncope, multiple diagnosis, including gi bleed which refused to treat, Code Status: Do Not Resuscitate - Medication Management Discharge Medications: electronically signed and located in the Home Medication List. - Orders Isolation Type: None Diet Recommendation: no restrictions on diet Additional Instructions: comfort care per hospice - Follow Up Care Current Providers and Referrals: Wesley Garcia DO [Primary Care Provider] - As per Instructions
[2018-02-27] MEDS: DIGOXIN 125 MCG TAB PO SCH (14:46)
--- NOTE | 2018-02-27 15:08 | ASDISCHSUM ---
Discharge Information Plan Status:Hospice-Home Medically Cleared to Leave:02/26/2018 Discharge Date:02/26/2018 CM D/C Disposition: ADT D/C Disposition:Hospice Facility Projected Discharge Date:02/27/2018 11:00 AM Transportation at D/C: Discharge Delay Reason: Follow-Up Date:02/27/2018 11:00 AM Discharge Slot: Final Diagnosis: Placement Information Referral Type:*Home Health Care Services Referral ID:[id number] Provider Name: Address 1: Phone Number: Address 2: Fax Number: City: Selection Factors: State: Referral Type:*Hospice Referral ID:[id number] Provider Name:[facility] Address 1:[address] Address 2: City:[place] Selection Factors: State:[place] Patient Contact Information Contact Name:TYLER Relationship:Other Address: Work Phone: City: [facility] Phone: State/Zip Code: Email: Financial Information Financial Class:Medicare Primary Plan Desc:MEDICARE INPATIENT Primary Plan Number:[id number] Secondary Plan Desc:[employer] Secondary Plan Number:[id number] Assessment Information LACE LACE Length of stay for Answers: 4-6 days current admission Acuity / Level of Answers: Yes Care: Did the patient have an inpatient admission? Comorbidities - select Answers: Coronary Artery Disease all that apply Dementia History of falls Other Notes: AFib; HTN # of Emergency department Answers: 1-2 visits in the last 6 months Score: 17 Date Signed: 02/27/2018 03:06 PM Electronically Signed By:BRIDGETTE Diez [facility] CM Progress Note CM Note CM Note Notes: CM reviewed pt's chart for d/c planning. Pt brought to ED for diarrhea and 2 syncopal episodes, one lasting several seconds and one lasting 20 minutes. He has a medical hx significant for dementia, Parkinsons, CAD, AFIB and HTN. OT/PT ordered. PT recommended in-home PT. No OT recommended. Family called; they requested [facility] as they had them before and were satisfied. Call made to [facility]. CM to follow. D/C Plan: Home with [facility] PT. Date Signed: 02/24/2018 02:13 PM Electronically Signed By:Demetrice Astudillo Case Management Discharge Plan Note Case Management Discharge Discharge Order Complete? Answers: Yes Patient to Obtain Answers: via Family Medications Transportation Arranged Answers: Other Notes: [place] stret[facility] Transport will Pick (Date 02/27/2018 06:00 PM & Time) [facility] Complete Answers: No Case Management Transport Answers: Yes Notes: Copy of the PCS in manuel t Form Complete Faxed Final Orders Answers: Yes Agency/Facility Transfer Answers: Yes Report Printed & Faxed to Receiving Agency Family Notified Answers: Yes Discharge Comments Notes: CM spoke to Dr. Lopez regarding d/c POC. Pt and his family have decided on hospice. CM met w/ pt and daughter in law for dispo planning. Daughter in law has chosen [facility] in to meet w/ pt and family. Pt is being d/c with [facility]. [facility] setting up DME. DC orders sent. CM available for changes. Plan: Home w/ [facility] Date Signed: 02/27/2018 03:04 PM Electronically Signed By:BRIDGETTE Diez Intervention Information Intervention Type:*GU-Signed Date of Service:02/24/2018 11:21 AM Patient Type:Observation Staff Member:Brittany Bains Hours: Discipline: Severity: Comment:
--- NOTE | 2018-02-27 16:54 | SOAPPROG ---
KAYLYNN Progress Note Assessment/Plan: Assessment: Plan: 02/26/18 17:39 A/P 1. Diarrhea- with colitis on CT. Possible blood. Etiology? Infectious versus ischemic versus other? Not improved today. I discussed proceeding with endoscopic evaluation but they do not want any invasive testing at this time. Will follow 02/27/18 16:51 A/P 1. Diarrhea- with colitis. Etiology? Infectious versus ischemic versus inflammatory/ No improving. Discussed colonoscopy but they do not want invasive testing. He understands r/b/a. GI will sign off. Thank you for the consultation! Subjective: cc: Follow up on diarrhea No improvement. Denies significant abdominal pain. Objective: Vital Signs Temp Pulse Resp BP Pulse Ox 36.8 C 105 H 21 H 124/79 H 96 02/27/18 08:10 02/27/18 08:10 02/27/18 08:10 02/27/18 08:10 02/27/18 08:10 Laboratory Results 02/27/18 10:24 02/27/18 04:58 02/26/18 02/27/18 02/28/18 05:59 05:59 05:59 Intake Total 1200 250 Balance 1200 250 Physical Exam - Physical Exam General Appearance: alert, no apparent distress EENT: No scleral icterus (R), No scleral icterus (L) Respiratory: lungs clear, normal breath sounds Abdomen: normal bowel sounds, non-tender, soft, No distended, No guarding, No rebound Neuro/Psych: alert, oriented x 3 ICD10 Worksheet Patient Problems: Problems Problem Status Onset Diarrhea Acute Pre-syncope Acute Dehydration Acute
[2018-02-27] MEDS ORDERED: PANTOPRAZOLE SODIUM 40 MG TAB PO SCH (21:00)
--- NOTE | 2018-02-27 21:29 | PDDCSUM ---
Discharge Summary Discharge Summary: patient is an 78 year old male with pmh of advanced parkinsons and afib who was admitted after suffering a syncopal episode and having bloody bowel movements. He was monitored on telemetry, and gi was consulted. He continued to have bloody bowel movements and gi offered colonoscopy but family and patient were not interested in any invasive testing and were leaning towards comfort care. His syncope continued and seemed to be due to vasovagal syncope as he would syncope when he was having a bowel movement. Patient and family ultimately decided that he would like to be made comfort care and not evaluate GI bleed. Because of the high risk fo mortality associated with an untreated GI bleed, patient was evaluated for hospice which he was accepted to. He was discharged to hospice on comfort care. over 30 minutes was spent on discharge including discussing wiht family, and arranging care at hospice.
== END 2018-02-27 19:34 | disposition home health service (06) | DRG 378 ==
LOC: F3E 17:07 → OBSVTOIN 02-25 14:20
PROVIDERS: ADMIT Internal Medicine; ATTEND Internal Medicine
DX: K92.1 Melena (principal); R55 Syncope and collapse; I48.1 Persistent atrial fibrillation; N17.9 Acute kidney failure, unspecified; G31.83 Neurocognitive disorder with Lewy bodies; F02.80 Dementia in other diseases classified elsewhere, unspecified severity, without behavioral disturbance, psychotic disturbance, mood disturbance, and anxiety; I25.10 Atherosclerotic heart disease of native coronary artery without angina pectoris; I10 Essential (primary) hypertension; Z86.010 Personal history of colon polyps; Z66 Do not resuscitate
CPT/HCPCS: 96374; 97116-GP; 97162-GP; 97166-GO; 97530-GO; G0378; G8978-GP-CK; G8979-GP-CJ; G8987-GO-CL; G8988-GO-CK; J2405; Q9967